=== PATIENT | female | born 1990 | race Caucasian/White ===

== ENCOUNTER 2022-10-14 07:46 | Inpatient (IN) ==
[2022-10-14] MEDS ORDERED: OXYTOCIN 30 UNITS/500 ML BAG IV PRN ×3 (07:59→18:55)
[2022-10-14] MEDS ORDERED: LIDOCAINE 1% LOCAL 20 ML VIAL INFIL PRN (07:59)
--- NOTE | 2022-10-14 08:03 | History & Physical Report ---
Date of Service October 14, 2022 Assessment & Plan (1) Encounter for supervision of normal in multigravida: Plan: Admit for IOL. Plans for epidural. Pitocin. Admission and Anticipated Discharge Date Admission Date: October 14, 2022 History of Present Illness Chief Complaint: IOL Primary Care Provider: Yumiko Marte DO 31yo @ 40 11/19, here for IOL. Covid+ beginning of May-currently taking Baby ASA daily Transfer into care @ 29+ weeks Low Lying placenta * plan 32wk placenta recheck Conceived on Clomid IOL Post-Dates 10/14 Allergies Allergy/AdvReac Type Severity Reaction Status Date / Time Penicillins Allergy Mild rash Verified 10/11/22 16:28 Home Medications Medication Instructions Recorded Confirmed Type lubiprostone 24 mcg capsule 24 mcg PO BID #60 caps 01/18/22 10/11/22 Rx (Amitiza) aspirin [Aspirin Childrens] PO 07/26/22 10/11/22 History sertraline [Zoloft] PO 07/26/22 10/11/22 History prenat.vits,yojana,wju-scml-kagdj 1 tab PO DAILY #90 tabs 08/14/22 10/11/22 Rx Patient History Medical History (Updated 07/30/22 @ 15:36 by Jelly Silva MD, FACOG) Abdominal cramping Constipation COVID Diarrhea History of anesthesia reaction cholecystectomy [facility] 07/22/19 - "they had to give me extra medicine to reverse the muscle relaxant." Miscarriage Surgical History (Updated 07/26/22 @ 10:24 by Nishi Barrera) History of foot surgery LEFT FOOT CYST REMOVED Hx laparoscopic cholecystectomy (07/22/19) Laparoscopic Cholecystectomy Dr. Peña 07/22/19 Hx of wisdom tooth extraction S/P colonoscopy Family History (Updated 07/26/22 @ 09:59 by Nishi Barrera) Father Diabetes Heart disease Other No family history of adverse response to anesthesia Denies family history of Ovarian cancer Breast cancer Colorectal cancer Social History (Updated 07/26/22 @ 10:00 by Nishi Barrera) Smoking Status: Never smoker Second Hand Exposure: No; Hx Alcohol Use: No Hx Substance Use: No Preferred Language: Namibian Communication Ability: Effective Visual Impairment: No Limitations Medical Collections Specialist Required: No Beliefs That Will Affect Care: None marital status: marital status details: Bora Ceballos (31) [phone] Current Living Situation: Spouse and Family Current Living Situation Comment: lives with spouse, daughter, pt's brother, no pets 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 occupational status: 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 No s/s chorio or abruption. Skin: no rashes, warm and dry Psychiatric: A+Ox3, euthymic affect Results & Data ([facility]) Vital Signs (Past 12 Hours) Vital Signs Pulse BP 10/14/22 07:59 125 H 90/67 L Coding Level of Care Code None Diagnoses Encounter for supervision of normal in multigravida Z34.80
[2022-10-14 08:16] LABS: Hematocrit (blood only) 36.4 % (37.0-47.0); Hemoglobin 12.2 g/dl (12.0-16.0); Mean Corpuscular Hemoglobin 28.4 pg (25.0-34.0); Mean Corpuscular Hgb Conc 33.5 g/dL (32.0-36.0); Mean Corpuscular Volume 84.7 fL (80.0-100.0); Mean Platelet Volume 9.7 fL (9.4-12.4); Platelet Count 256 K/uL (130-400); RDW Coefficient of Variation 14.9 % (11.5-14.5); RDW Standard Deviation 45.9 fL (36.4-46.3); White Blood Count 11.67 K/ul (4.8-10.8)
[2022-10-14] MEDS ORDERED: ONDANSETRON INJ 2 MG/ML 2 ML VIAL IV STA (08:47)
[2022-10-14] MEDS: LACTATED RINGER'S 1,000 ML IV PRN ×2 (09:13→13:37)
[2022-10-14] MEDS ORDERED: ACETAMINOPHEN 325 MG TAB PO ONE (14:54)
--- NOTE | 2022-10-14 15:06 | Labor Progress Brief Note ---
Date of Service October 14, 2022 Subjective pt feeling mild ctx, ready for arom Assessment & Plan (1) Encounter for supervision of normal in multigravida: (2) Encounter for induction of labor: Plan will see how arom helps labor pattern. she does plan eventual epidural. will restart pit if fhts categ 1 by 30min at half. pt and partner aware, deny ?s. Admission and Anticipated Discharge Date Admission Date: October 14, 2022 Physical Exam Constitutional: WD/WN, vitals as above Genitourinary: Manual OB Exam: + cervical dilation 5 cm, + cervical effacement 90%, + station -2 and + amniotic fluid (arom--min fluid??) clear OB Exam Monitor Tracing: + external FHT monitor used, + external uterine monitor used, + category I (+scalp stim with arom, then decel noted, pit was at 21, turned off) and + normal FHT variability during decel pt rolled to lateral sides, o2 appiled and bolus given, fhts recovered to 125, mod variability Results & Data ([facility]) Vital Signs (Past 12 Hours) Vital Signs Temp Pulse Resp BP 10/14/22 08:28 98.2 F 125 H 18 90/67 L 10/14/22 14:13 85 10/14/22 14:13 105/57 L 10/14/22 08:00 18 10/14/22 08:00 98.4 F 18 10/14/22 13:15 72 10/14/22 13:15 125/73 10/14/22 12:03 81 10/14/22 12:03 122/81 10/14/22 11:01 92 H 10/14/22 11:01 107/73 10/14/22 10:04 73 10/14/22 10:04 110/71 10/14/22 09:19 80 10/14/22 09:19 106/66 10/14/22 07:59 125 H 90/67 L Coding Level of Care Code None Diagnoses Encounter for supervision of normal in multigravida Z34.80 Encounter for induction of labor Z34.90
[2022-10-14] MEDS ORDERED: ePHEDrine sulfate 50 MG/ML AMP ONE (15:23)
[2022-10-14] MEDS ORDERED: fentaNYL 2MCG/ML ROPIVACAINE 1.25MG/ML 100 ML BAG EPI ONE (15:24)
[2022-10-14] MEDS ORDERED: BUPIVACAINE 0.25% 30 ML VIAL ONE (15:24)
[2022-10-14] MEDS ORDERED: LIDOCAINE 2%/EPINEPHRINE 1:200,000 20 ML SDV ONE (15:24)
[2022-10-14] MEDS ORDERED: fentaNYL citrate 100 MCG/2 ML VIAL ONE (15:24)
[2022-10-14] MEDS ORDERED: SODIUM CHLORIDE 0.9% INJ 10 ML VIAL ONE (15:24)
[2022-10-14] MEDS ORDERED: NALOXONE HCL 0.4 MG/1 ML VIAL/CARP IV PRN (15:25)
[2022-10-14] MEDS ORDERED: NALOXONE HCL 1 MG in SODIUM CHLORIDE 0.9% 1000ML 1,000 ML IV PRN (15:25)
[2022-10-14] MEDS ORDERED: diphenhydrAMINE 50 MG/ML VIAL IV PRN (15:25)
[2022-10-14] MEDS ORDERED: ONDANSETRON INJ 2 MG/ML 2 ML VIAL IV PRN (15:25)
[2022-10-14] MEDS ORDERED: NALBUPHINE HCL INJ 10 MG/ML AMP IV PRN (15:25)
[2022-10-14] MEDS ORDERED: ePHEDrine sulfate 50 MG/ML AMP IV PRN (15:25)
[2022-10-14] MEDS ORDERED: fentaNYL 2MCG/ML ROPIVACAINE 1.25MG/ML 100 ML BAG EPI PRN (15:25)
--- NOTE | 2022-10-14 15:25 | Anesthesiology Consultation ---
Date of Service October 14, 2022 Assessment & Plan ASA ASA2 Proposed Anesthesia Anesthesia Type: Labor Epidural Risk / Benefits Reviewed With: PT / POA / Parent / Guardian, Accepts Plan and Informed Consent Obtained History Height/Weight Height: 5 ft 4 in Weight: 76.204 kg Allergies Allergy/AdvReac Type Severity Reaction Status Date / Time Penicillins Allergy Mild rash Verified 10/14/22 08:16 Medications Home Medications Medication Instructions Recorded Confirmed Last Taken lubiprostone 24 mcg capsule 24 mcg PO BID #60 caps 01/18/22 10/14/22 10/13/22 20:00 (Amitiza) aspirin [Aspirin Childrens] 1 tab PO DAILY 07/26/22 10/14/22 10/11/22 sertraline [Zoloft] 1 tab PO DAILY 07/26/22 10/14/22 10/13/22 20:00 prenat.vits,yojana,wqh-nsdi-bxelk 1 tab PO DAILY #90 tabs 08/14/22 10/14/22 10/13/22 20:00 Pepcid 1 tab PO Q6H PRN Heartburn 10/14/22 10/14/22 10/13/22 20:00 Active Medications Generic Name Dose Route Start Last Admin Trade Name Freq PRN Reason Stop Dose Admin Oxytocin 30 units in 500 mls @ 12 mls/hr 10/14/22 08:00 10/14/22 16:00 Pitocin IV 10/16/22 07:59 0.72 units/hr .Q24H PRN 12 mls/hr Labor Induction/Augmentation Titration Protocol 0.72 UNITS/HR Lactated Ringer's 1,000 mls @ 125 mls/hr 10/14/22 07:59 10/14/22 13:37 Lr IV 10/16/22 07:58 125 mls/hr .Q8H PRN Administration L&D Protocol Protocol Past Medical History Medical History Abdominal cramping Constipation COVID Diarrhea History of anesthesia reaction cholecystectomy [facility] 07/22/19 - "they had to give me extra medicine to reverse the muscle relaxant." Miscarriage Exercise / Class Metabolic Activity II 4-5 Yardwork/Stairs/Walk up hill Past Family History Family History Father Diabetes Heart disease Other No family history of adverse response to anesthesia Denies family history of Ovarian cancer Breast cancer Colorectal cancer Past Surgical History Surgical History History of foot surgery LEFT FOOT CYST REMOVED Hx laparoscopic cholecystectomy (07/22/19) Laparoscopic Cholecystectomy Dr. Peña 07/22/19 Hx of wisdom tooth extraction S/P colonoscopy Past Anesthesia History No Hx of Anesthesia Complications and No Family Hx of Anesthesia Complications History of PONV No Hx of PONV and No Hx of Motion Sickness Social History Smoking Status: Never smoker Hx Alcohol Use: No Hx Substance Use: No substance use type: does not use Review of Systems denies fever/cough/ colds/ chest pain/ SOB/ NAA denies NAA Physical Exam Vital Signs Last Vital Signs Temp 36.7 C 10/14/22 15:05 Pulse 75 10/14/22 16:30 Resp 18 10/14/22 15:05 BP 112/61 10/14/22 16:29 Pulse Ox 98 10/14/22 16:30 ENMT Mouth: no TMJ abnormality and no dentition abnormality Thyromental Distance: > or= 3.5 Finger Breadths Mallampati Class: II Neck neck extension not limited Respiratory normal respiratory effort; no respiratory distress Auscultation: lungs clear to auscultation bilaterally Cardiovascular Rate/Rhythm: regular rate and regular rhythm Neurologic moves all extremities Psychiatric Orientation: alert and oriented x 3 Testing Laboratory Results 10/14/22 08:03
[2022-10-14] MEDS ORDERED: miSOPROStoL 200 MCG TAB ONE (17:54)
[2022-10-14] MEDS ORDERED: METHYLERGONOVINE MALEATE 0.2 MG/ML AMP ONE (18:01)
--- NOTE | 2022-10-14 18:40 | Delivery Summary ---
Vaginal Delivery Summary Date of Service October 14, 2022 Vaginal Delivery Summary and 2nd Degree LAC The patient dilated to complete and pushed to deliver a viable male infant Apgars 8 and 9 via over 2nd degree perineal laceration. Mouth and nose bulb suctioned at perineum. Loose nuchal x 4 reduced with ease. Shoulders and body delivered with ease. was vigorous and crying at . Cord clamped at 30 seconds of life and to maternal abdomen where the cord was then doubly clamped and cut. Placenta delivered spontaneously and intact, three-vessel cord. Hemostasis not achieved with dilute pitocin and uterine massage and drainage of the bladder for approximately 300 cc under sterile conditions. Bimanual massage initiated and uterus swept x 2, ? tissue on anterior BRIGETTE and so bedside curette used with minimal result. Uterus boggy and clots swept from BRIGETTE multiple times. Rectal cytotec and IM methergine given after checking bp due to continued trickle of blood. Bakri balloon prepared to being able to place hand in BRIGETTE but once tried to inflate, was pushed out by uterus. Uterus then observed and notably minimal continued bleeding with well contracted uterus on abdominal exam. Laceration repaired in routine fashion with 3-0 vicryl. Cervix and sulci intact. EBL 600 cc. Mother and baby stable in recovery. [facility] Vaginal Delivery Charge Delivery Type Details: and 2nd Degree LAC
[2022-10-14] MEDS ORDERED: DIPHTHERIA/TETANUS/PERTUSSIS 0.5mL SYR/VIAL (Age 7+yrs) IM ONE (18:55)
[2022-10-14] MEDS ORDERED: miSOPROStoL 200 MCG TAB PR ONE (18:55)
[2022-10-14] MEDS ORDERED: METHYLERGONOVINE MALEATE 0.2 MG/ML AMP IM ONE (18:55)
[2022-10-14] MEDS ORDERED: HYDROCORTISONE ACETATE 25 MG SUPP PR PRN (18:55)
[2022-10-14] MEDS ORDERED: bisacodyL 10 MG SUPP PR PRN (18:55)
[2022-10-14] MEDS ORDERED: BENZOCAINE 20% AER SPR 82.5 GM CAN EXT PRN (18:55)
[2022-10-14] MEDS ORDERED: OXYTOCIN 20 UNITS in LACTATED RINGER'S 1,000 ML IV SCH (19:00)
[2022-10-14] MEDS ORDERED: FAMOTIDINE 10 MG TABLET PO PRN (19:04)
--- NOTE | 2022-10-14 19:27 | Anesthesia Procedure Note ---
Date of Service October 14, 2022 Anesthesia Post Epidural Note Vital Signs Vital Signs: Temp Pulse Resp BP Pulse Ox 37.0 C 60 16 125/58 L 98 10/14/22 17:00 10/14/22 19:25 10/14/22 17:00 10/14/22 19:14 10/14/22 19:25 Notes Mental Status: alert / awake / arousable and participated in evaluation Nausea / Vomiting: adequately controlled Pain: adequately controlled Airway Patency, RR, SpO2: stable & adequate BP & HR: stable & adequate Hydration State: stable & adequate Anesthetic Complications: no major complications apparent and Pt Satisfied with anesthetic care Epidural: Removed without complications and With tip intact
[2022-10-14] MEDS: ceFAZolin 2000MG 2,000 MG/15 ML SYR IV SCH (19:51)
[2022-10-14] MEDS: DOCUSATE SODIUM 100 MG CAP PO SCH ×2 (21:08→21:18)
[2022-10-14] MEDS: LUBIPROSTONE 8 MCG CAP PO SCH (21:09)
[2022-10-14] MEDS: SERTRALINE HCL 50 MG TABLET PO SCH (21:09)
[2022-10-14] MEDS: IBUPROFEN 600 MG TAB PO PRN (23:17)
[2022-10-15] MEDS: ACETAMINOPHEN 325 MG TAB PO PRN ×2 (01:22→11:17)
[2022-10-15] MEDS: IBUPROFEN 600 MG TAB PO PRN ×3 (03:08→18:43)
[2022-10-15] MEDS: ceFAZolin 2000MG 2,000 MG/15 ML SYR IV SCH ×2 (03:11→10:41)
[2022-10-15] MEDS ORDERED: oxyCODONE/ACETAMINOPHEN 5mg/325mg TAB PO PRN (04:00)
--- NOTE | 2022-10-15 06:52 | Obstetrical Progress Note ---
Date of Service <Bridget SGypsy Kellogg DO - Last Filed: 10/15/22 07:30> October 15, 2022 Assessment & Plan <Bridget SGypsy Kellogg DO - Last Filed: 10/15/22 07:30> (1) Status post vaginal delivery: continue OOB, ambulation, diet as tolerated <Jelly Silva MD, FACOG - Last Filed: 10/15/22 07:37> (1) Status post vaginal delivery: Day #:: 1 Subjective <Bridget S. DO Valdez - Last Filed: 10/15/22 07:30> Anna is a 31 y/o female who is now PPD # 1 following vaginal delivery at 40 3/7 weeks. Reports feeling well overall this morning. Moderate abdominal cramping, pain well managed on analgesics. Voiding. Able to ambulate some. Some persistent lochia with some improvement this morning. Breast feeding. Review of Systems As per above Physical Exam <Bridget Kellogg DO - Last Filed: 10/15/22 07:30> General: Alert, oriented. No acute distress. Cardiac: Regular rate and rhythm, no murmurs/rubs/gallops. Respiratory: Clear to auscultation bilaterally a/p, no wheezes/rales/rhonchi. No increased work of breathing. Symmetrical chest rise. No respiratory distress. Uterus: Uterine fundus firm, palpable 2 cm below umbilicus. Lower Extremities: No lower extremity edema or swelling. No deep calf pain. Results & Data ([facility]) <Bridget SGypsy Kellogg DO - Last Filed: 10/15/22 07:30> Vital Signs (Past 12 Hours) Vital Signs Temp Pulse Pulse Resp BP BP Pulse Ox 10/15/22 03:50 36.6 C 74 16 127/83 97 10/14/22 23:05 36.6 C 70 16 103/85 96 10/14/22 20:32 36.8 C 69 16 111/73 96 10/14/22 19:45 36.8 C 18 10/14/22 20:13 62 10/14/22 20:13 123/67 10/14/22 19:58 68 10/14/22 19:58 121/72 10/14/22 19:50 99 10/14/22 19:50 63 10/14/22 19:45 96 10/14/22 19:45 61 10/14/22 19:44 60 10/14/22 19:44 120/62 10/14/22 19:40 98 10/14/22 19:40 63 10/14/22 19:35 99 10/14/22 19:35 62 10/14/22 19:30 99 10/14/22 19:30 73 10/14/22 19:29 65 10/14/22 19:29 119/63 10/14/22 19:25 98 10/14/22 19:25 60 10/14/22 19:20 97 10/14/22 19:20 58 L 10/14/22 19:15 98 10/14/22 19:15 60 10/14/22 19:14 61 10/14/22 19:14 125/58 L 10/14/22 19:10 91 10/14/22 19:10 62 10/14/22 19:05 98 10/14/22 19:05 68 10/14/22 19:00 96 10/14/22 19:00 67 10/14/22 18:59 90 10/14/22 18:59 64 10/14/22 18:55 98 10/14/22 18:55 71 10/14/22 18:50 100 10/14/22 18:50 73 O2 Del Method 10/15/22 03:50 Room Air 10/14/22 23:05 Room Air 10/14/22 20:32 Room Air 10/14/22 19:45 10/14/22 20:13 10/14/22 20:13 10/14/22 19:58 10/14/22 19:58 10/14/22 19:50 10/14/22 19:50 10/14/22 19:45 10/14/22 19:45 10/14/22 19:44 10/14/22 19:44 10/14/22 19:40 10/14/22 19:40 10/14/22 19:35 10/14/22 19:35 10/14/22 19:30 10/14/22 19:30 10/14/22 19:29 10/14/22 19:29 10/14/22 19:25 10/14/22 19:25 10/14/22 19:20 10/14/22 19:20 10/14/22 19:15 10/14/22 19:15 10/14/22 19:14 10/14/22 19:14 10/14/22 19:10 10/14/22 19:10 10/14/22 19:05 10/14/22 19:05 10/14/22 19:00 10/14/22 19:00 10/14/22 18:59 10/14/22 18:59 10/14/22 18:55 10/14/22 18:55 10/14/22 18:50 10/14/22 18:50 <Jelly Silva MD, FACOG - Last Filed: 10/15/22 07:37> Co-Signing Physician Notes Resident Physician Supervision Note: I was present with Dr. Kellogg during the history and exam. I discussed the case with the resident and agree with the findings and plan as documented in the note. Any exceptions or clarifications are listed here: pt doing better overnight, had some significant cramps but improved after percocet. eating, voiding, ambulating without problem. no bleeding issues. abd soft nt ff 2 down, ext nt calves. had pph and hgb noted. cont current care. rh pos, ri, breast. Documented By: Jelly Silva MD, FACOG Resident Activity Tracking <Bridget Kellogg, DO - Last Filed: 10/15/22 07:30> Resident Involvement: Resident Care Provided Care Provided: OB Delivery (Post )
[2022-10-15 07:59] LABS: Hematocrit (blood only) 33.6 % (37.0-47.0); Hemoglobin 11.2 g/dl (12.0-16.0)
[2022-10-15] MEDS: PRENATAL VITAMIN 1 TAB PO SCH (08:18)
[2022-10-15] MEDS: DOCUSATE SODIUM 100 MG CAP PO SCH ×2 (08:19→21:09)
[2022-10-15] MEDS: LUBIPROSTONE 8 MCG CAP PO SCH ×3 (08:20→21:09)
[2022-10-15] MEDS ORDERED: FLUARIX QUADRIVALENT 0.5 ML SYR IM ONE (09:04)
[2022-10-15] MEDS ORDERED: bisacodyL 5 MG TABEC PO SCH (20:00)
[2022-10-16] MEDS: IBUPROFEN 600 MG TAB PO PRN ×2 (02:55→08:27)
--- NOTE | 2022-10-16 06:12 | Obstetrical Progress Note ---
Date of Service <Bridget Kellogg - Last Filed: 10/16/22 07:13> October 16, 2022 Assessment & Plan <Bridget Kellogg DO - Last Filed: 10/16/22 07:13> (1) Status post vaginal delivery: continue OOB, ambulation, diet as tolerated Post f/u in 6 weeks Discharge instructions reviewed <Tavia Robledo MD, FACOG - Last Filed: 10/16/22 07:16> (1) Status post vaginal delivery: Subjective <Bridget Kellogg - Last Filed: 10/16/22 07:13> Anna is a 31 y/o female who is now PPD #2 following vaginal delivery at 40 3/7 weeks. Reports feeling well overall this morning. Moderate abdominal cramping, pain well managed on analgesics. Voiding. Able to ambulate some. Some persistent lochia with some improvement this morning. Breast fe eding. Review of Systems Denies fever, chills, sweats Denies shortness of breath, difficulty breathing, chest pain, palpitations, chest pressure. Denies breast pain. Denies dysuria. Denies headache or changes in vision. Physical Exam <Bridget Kellogg - Last Filed: 10/16/22 07:13> General: Alert, oriented. No acute distress. Cardiac: Regular rate and rhythm, no murmurs/rubs/gallops. Respiratory: Clear to auscultation bilaterally a/p, no wheezes/rales/rhonchi. No increased work of breathing. Symmetrical chest rise. No respiratory distress. Uterus: Uterine fundus firm, palpable 2 cm below umbilicus. Lower Extremities: No lower extremity edema or swelling. No deep calf pain. Results & Data ([facility]) <Bridget Kellogg - Last Filed: 10/16/22 07:13> Vital Signs (Past 12 Hours) Vital Signs Temp Pulse Resp BP O2 Del Method 10/15/22 23:10 36.6 C 76 18 107/72 Room Air 10/15/22 19:50 36.5 C 63 18 103/70 Room Air <Tavia Robledo MD, FACOG - Last Filed: 10/16/22 07:16> Co-Signing Physician Notes Resident Physician Supervision Note: I was present with Dr. Kellogg during the history and exam. I discussed the case with the resident and agree with the findings and plan as documented in the note. Any exceptions or clarifications are listed here: [None] Documented By: Tavia Robledo MD, FACOG Resident Activity Tracking <Bridget Kellogg, DO - Last Filed: 10/16/22 07:13> Resident Involvement: Resident Care Provided Care Provided: OB Delivery (Post )
[2022-10-16] MEDS: PRENATAL VITAMIN 1 TAB PO SCH (08:28)
[2022-10-16] MEDS: DOCUSATE SODIUM 100 MG CAP PO SCH (08:28)
[2022-10-16] MEDS: SERTRALINE HCL 50 MG TABLET PO SCH (08:32)
[2022-10-16] MEDS: LUBIPROSTONE 8 MCG CAP PO SCH (08:33)
== END 2022-10-16 12:00 | disposition home or self-care (01) | DRG 806 ==
LOC: 4S1 07:46 → 4E2 21:08

== ENCOUNTER 2024-06-14 09:06 | Inpatient (IN) ==
[2024-06-14] MEDS ORDERED: OXYTOCIN 30 UNITS/NSS 30 UNITS/500 ML BAG IV PRN ×2 (09:15→15:57)
[2024-06-14] MEDS ORDERED: LIDOCAINE 1% LOCAL 20 ML VIAL INFIL PRN (09:15)
[2024-06-14 09:58] LABS: Hematocrit (blood only) 36.1 % (37.0-47.0); Hemoglobin 11.7 g/dl (12.0-16.0); Mean Corpuscular Hemoglobin 27.4 pg (25.0-34.0); Mean Corpuscular Hgb Conc 32.4 g/dL (32.0-36.0); Mean Corpuscular Volume 84.5 fL (80.0-100.0); Mean Platelet Volume 9.4 fL (9.4-12.4); Platelet Count 251 K/uL (130-400); RDW Coefficient of Variation 16.3 % (11.5-14.5); Red Blood Count 4.27 M/uL (4.20-5.40); White Blood Count 10.55 K/ul (4.8-10.8)
[2024-06-14] MEDS: LACTATED RINGER'S 1,000 ML IV PRN (10:07)
[2024-06-14] MEDS: OXYTOCIN 30 UNITS/NSS 30 UNITS/500 ML BAG IV PRN (10:07)
[2024-06-14] MEDS ORDERED: BUPIVACAINE 0.25% PF 30 ML VIAL EPI PRN (11:41)
[2024-06-14] MEDS ORDERED: ONDANSETRON INJ 2 MG/ML 2 ML VIAL IV PRN ×2 (11:41→18:26)
[2024-06-14] MEDS ORDERED: NALOXONE HCL 1 MG in SODIUM CHLORIDE 0.9% 1,000 ML IV PRN ×2 (11:41→18:26)
[2024-06-14] MEDS ORDERED: fentaNYL citrate PF 100 MCG/2 ML VIAL EPI PRN (11:41)
[2024-06-14] MEDS ORDERED: NALBUPHINE HCL INJ 10 MG/ML AMP IV PRN ×2 (11:41→18:26)
[2024-06-14] MEDS ORDERED: ePHEDrine sulfate 50 MG/ML AMP IV PRN ×2 (11:41→18:26)
[2024-06-14] MEDS ORDERED: LIDOCAINE 2% MPF LOCAL 5 ML VIAL EPI PRN (11:41)
[2024-06-14] MEDS ORDERED: diphenhydrAMINE 50 MG/ML VIAL IV PRN ×2 (11:41→18:26)
[2024-06-14] MEDS ORDERED: NALOXONE HCL 0.4 MG/1 ML VIAL/CARP IV PRN ×2 (11:41→18:26)
[2024-06-14] MEDS ORDERED: SODIUM CHLORIDE 0.9% PF INJ 10 ML VIAL EPI PRN (11:41)
[2024-06-14] MEDS ORDERED: ROPIVACAINE 0.5% PF 5 MG/ML 20 ML VIAL EPI PRN (11:41)
--- NOTE | 2024-06-14 11:43 | Anesthesiology Consultation ---
Date of Service June 14, 2024 Assessment & Plan (1) Encounter for pre-operative examination: Chart Review Chart Review: Patient NOT seen in Pre Admission Testing and Acceptable Risk for Labor Epidural Consults Requested none History Height/Weight Height: 5 ft 4 in Weight: 78.018 kg Allergies Allergy/AdvReac Type Severity Reaction Status Date / Time Penicillins Allergy Mild rash Verified 06/08/24 16:17 Medications Home Medications Medication Instructions Recorded Confirmed Last Taken lubiprostone 24 mcg capsule 24 mcg PO HS 10/26/23 06/14/24 06/13/24 22:30 (Amitiza) sertraline 25 mg tablet 25 mg PO HS 10/26/23 06/14/24 06/13/24 22:30 vitamin with calcium 1 tab PO DAILY #90 tabs 04/20/24 06/14/24 06/13/24 22:30 no.72-iron 27 mg-folic acid 1 mg tablet (WesTab Plus) Active Medications Generic Name Dose Route Start Last Admin Trade Name Freq PRN Reason Stop Dose Admin Oxytocin 30 units in 500 mls @ 5 mls/hr 06/14/24 09:15 06/14/24 11:15 Pitocin 30 Units/Nss IV 06/16/24 09:14 0.3 units/hr .Q24H PRN 5 mls/hr Labor Induction/Augmentation Titration Protocol 0.3 UNITS/HR Lactated Ringer's 1,000 mls @ 125 mls/hr 06/14/24 09:15 06/14/24 11:25 Lr IV 06/16/24 09:14 999 mls/hr .Q8H PRN Titration L&D Protocol Protocol Past Medical History Medical History Encounter for induction of labor Miscarriage COVID History of anesthesia reaction cholecystectomy [facility] 07/22/19 - "they had to give me extra medicine to reverse the muscle relaxant." Abdominal cramping Diarrhea Constipation Exercise / Class Metabolic Activity II 4-5 Yardwork/Stairs/Walk up hill Past Family History Family History Father Diabetes Heart disease Myocardial infarction Sister No problems noted. Mother Hypertension Hypothyroidism Other No family history of adverse response to anesthesia Denies family history of Ovarian cancer Prostate cancer Breast cancer Colorectal cancer Past Surgical History Surgical History Status post vaginal delivery S/P colonoscopy Hx laparoscopic cholecystectomy (07/22/19) Laparoscopic Cholecystectomy Dr. Peña 07/22/19 History of foot surgery LEFT FOOT CYST REMOVED Hx of wisdom tooth extraction Social History Smoking Status: Never smoker Do You Dip or Chew Tobacco: No Hx Alcohol Use: No Hx Substance Use: No substance use type: does not use Physical Exam Vital Signs Last Vital Signs Temp 36.7 C 06/14/24 09:14 Pulse 72 06/14/24 11:14 Resp 18 06/14/24 09:14 BP 106/67 06/14/24 11:14 Testing Laboratory Results 06/14/24 09:33 Blood Type O Positive 06/14/24 09:33 Antibody Screen NEGATIVE 06/14/24 09:33
[2024-06-14] MEDS: LIDOCAINE 2%/EPINEPHRINE 1:200,000 20 ML PF EPI STA (12:13)
[2024-06-14] MEDS: fentANYL 2 MCG/ML BUPIVacaine 0.125%-NSS 100ML BAG EPI PRN (12:13)
[2024-06-14] MEDS: fentaNYL citrate PF 100 MCG/2 ML VIAL EPI STA (12:13)
[2024-06-14] MEDS: BUPIVACAINE 0.25% PF 30 ML VIAL EPI STA (12:13)
--- NOTE | 2024-06-14 13:04 | History & Physical Report ---
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: G1 2017 SAB G2 2019 at 40 wks G3 2022 at 40 wks G4 current denies hx stis Allergies Allergy/AdvReac Type Severity Reaction Status Date / Time Penicillins Allergy Mild rash Verified 06/08/24 16:17 Home Medications Medication Instructions Recorded Confirmed Type lubiprostone 24 mcg capsule 24 mcg PO HS 10/26/23 06/14/24 History (Amitiza) sertraline 25 mg tablet 25 mg PO HS 10/26/23 06/14/24 History vitamin with calcium 1 tab PO DAILY #90 tabs 04/20/24 06/14/24 Rx no.72-iron 27 mg-folic acid 1 mg tablet (WesTab Plus) Patient History Medical History Encounter for induction of labor Miscarriage COVID History of anesthesia reaction cholecystectomy [facility] 07/22/19 - "they had to give me extra medicine to reverse the muscle relaxant." Abdominal cramping Diarrhea Constipation Surgical History Status post vaginal delivery S/P colonoscopy Hx laparoscopic cholecystectomy (07/22/19) Laparoscopic Cholecystectomy Dr. Peña 07/22/19 History of foot surgery LEFT FOOT CYST REMOVED Hx of wisdom tooth extraction Family History Father Diabetes Heart disease Myocardial infarction Sister No problems noted. Mother Hypertension Hypothyroidism Other No family history of adverse response to anesthesia Denies family history of Ovarian cancer Prostate cancer Breast cancer Colorectal cancer Social History Smoking Status: Never smoker Second Hand Exposure: No; Do You Dip or Chew Tobacco: No; Hx Alcohol Use: No Hx Substance Use: No Preferred Language: Khmer Communication Ability: Effective Visual Impairment: No Limitations Shared Services Manager Required: No Beliefs That Will Affect Care: None marital status: marital status details: Bora Ceballos (32) [phone] Current Living Situation: Spouse and Family Current Living Situation Comment: lives with spouse, 2 kids, no pets 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 That Helps Us Care for You: No Feels Safe at Home: Yes Safety Concerns: Feels Safe At This Time Assistive Devices: Contacts and Glasses Physical Exam Genitourinary: Manual OB Exam: + cervical dilation 4 cm, + cervical effacement 70%, + station -2 and + amniotic fluid (arom clear) OB Exam Monitor Tracing: + external FHT monitor used, + external uterine monitor used (q4) and + category I (145-150/mod/+accel/-decel) Results & Data Vital Signs (Past 12 Hours) Vital Signs Temp Pulse Resp BP Pulse Ox 06/14/24 12:57 65 112/58 L 06/14/24 12:54 69 99 06/14/24 12:50 85 103/65 06/14/24 12:49 68 86 L 06/14/24 12:44 61 104/59 L 100 06/14/24 12:39 100 06/14/24 12:39 68 06/14/24 12:39 68 108/64 06/14/24 12:37 59 L 100/60 06/14/24 12:35 66 105/69 06/14/24 12:34 71 100 06/14/24 12:33 64 104/66 06/14/24 12:31 63 106/67 06/14/24 12:29 97 06/14/24 12:29 67 06/14/24 12:29 64 107/68 06/14/24 12:28 98.4 F 06/14/24 12:27 70 107/65 06/14/24 12:25 67 104/64 06/14/24 12:24 68 99 06/14/24 12:23 65 103/63 06/14/24 12:21 81 101/63 06/14/24 12:20 20 06/14/24 12:20 20 06/14/24 12:19 68 98/61 L 99 06/14/24 12:17 75 101/60 06/14/24 12:15 69 20 97/64 L 06/14/24 12:14 72 99 06/14/24 12:13 71 100/61 06/14/24 12:11 71 91/54 L 06/14/24 12:10 20 06/14/24 12:10 20 06/14/24 12:09 100 06/14/24 12:09 65 06/14/24 12:09 64 100/59 L 06/14/24 12:06 66 102/60 92 06/14/24 12:04 66 97 06/14/24 11:59 58 L 98 06/14/24 11:54 94 H 100 06/14/24 11:50 77 117/75 06/14/24 11:49 80 100 06/14/24 11:14 72 106/67 06/14/24 10:10 78 107/71 06/14/24 09:23 85 107/60 06/14/24 09:14 98.1 F 18 Laboratory Results OB Labs: Blood Type O Positive 11/10/23 Antibody Screen NEGATIVE 11/10/23 Hgb 11.0 g/dl (12.0-16.0) L 03/25/24 Hct 34.6 % (37.0-47.0) L 03/25/24 MCV 80.6 fL (80.0-100.0) 12/14/23 Plt Count 364 K/uL (130-400) 12/14/23 Rubella IgG Antibody Immune (Immune) 11/10/23 RPR Nonreactive (Nonreactive) 11/10/23 Hep Bs Antigen NON-REACTIVE (NON-REACTIVE) 11/10/23 Hepatitis C Ab (EIA) NON-REACTIVE (NON-REACTIVE) 11/10/23 HIV (1&2) Ag & Ab Conf NON-REACTIVE (NON-REACTIVE) 11/10/23 Glucose 1 Hr 50 gm 76 mg/dl (70-130) 03/25/24 OB Optional Labs: Chlamydia trachomatis RNA Not Detected (NotDetected) 11/10/23 Neisseria gonorrhoeae RNA Not Detected (NotDetected) 11/10/23 Labs Reviewed: Declines genetics--mln gbs neg--akh Diagnostic Findings ant plac Coding Level of Care Code None Diagnoses Encounter for supervision of normal in multigravida Z34.80
[2024-06-14] MEDS ORDERED: NURSING L&D Epidural Breakthrough Pain Update ONE (14:35)
--- NOTE | 2024-06-14 15:52 | Delivery Summary ---
Vaginal Delivery Summary Date of Service June 14, 2024 Vaginal Delivery Summary [facility] PREOPERATIVE DIAGNOSIS: 1. Single intrauterine at 40 1/7 wga 2. Induction of labor POSTOPERATIVE DIAGNOSIS: 1. Single intrauterine at 40 1/7 wga 2. Induction of labor 3. Delivered PROCEDURE: 1. Normal spontaneous vaginal delivery. SURGEON: Anna Park MD ANESTHESIA: Epidural. QUANTITATIVE BLOOD LOSS: 134 mL FLUIDS: Continuous LR. URINE OUTPUT: 400cc by straight cath after delivery COMPLICATIONS: None. CONDITION: Stable. INDICATIONS: 33 yo at 40 1/7 wga presented for induction of labor. She was 4cm on arrival and started on pitocin. She received an epidural for pain control and underwent arom. She quickly progressed to complete and desired to push FINDINGS: A viable female infant, weight pending with Apgars of 7 and 9 at 1 and 5 minutes respectively. SPECIMEN: Cord blood OPERATIVE REPORT: The patient progressed to 10 cm, 100% effaced and +2 station, pushed over intact perineum with anesthesia to deliver a viable female , weight and Apgars as above. Head of delivered in GRACE position. No nuchal cord was present. Body and shoulders were delivered without difficulty. was delivered to maternal abdomen and nursing staff. Cord was clamped and cut. Cord blood was obtained. Placenta delivered spontaneously intact with 3-vessel cord. IV oxytocin and fundal massage were given for excellent hemostasis. Vagina, cervix, perineum, and placenta were inspected. No lacerations were noted. Sponge and needle counts correct x2. No sponges were left behind. Mother and stable in immediate period. [facility] Vaginal Delivery Charge Vaginal Delivery Codes: 77587 global code for the antepartum, delivery, and post- Delivery Type Details: [facility]
[2024-06-14] MEDS ORDERED: HYDROCORTISONE ACETATE 25 MG SUPP PR PRN (15:57)
[2024-06-14] MEDS ORDERED: bisacodyL 10 MG SUPP PR PRN (15:57)
[2024-06-14] MEDS: SODIUM CHLORIDE 0.9% PF INJ 10 ML VIAL EPI STA (16:56)
[2024-06-14] MEDS ORDERED: MoRPHine SULFATE PF 1 MG/ML 10 ML AMP/VIAL ONE (18:04)
[2024-06-14] MEDS ORDERED: NALOXONE HCL 0.08 MG in SYRINGE 1.8 ML IV PRN (18:26)
[2024-06-14] MEDS ORDERED: LACTATED RINGER'S 500 ML IV PRN (18:26)
[2024-06-14] MEDS ORDERED: PROMETHAZINE 6.25 MG/50.25 ML BAG IV PRN (18:26)
[2024-06-14] MEDS: COSYNTROPIN 1,000 MCG in SODIUM CHLORIDE 0.9% 50 ML IV ONE (18:30)
[2024-06-14] MEDS ORDERED: DC INTRASPINAL MORPHINE SCH (18:30)
[2024-06-14] MEDS ORDERED: NO NARCOTICS OR SEDATIVES SCH (18:30)
--- NOTE | 2024-06-14 18:32 | Anesthesia Procedure Note ---
Date of Service June 14, 2024 Anesthesia Post Epidural Note Vital Signs Vital Signs: Temp Pulse Resp BP Pulse Ox 36.9 C 83 18 111/57 L 97 06/14/24 15:05 06/14/24 18:03 06/14/24 15:05 06/14/24 18:03 06/14/24 15:44 Pain Intensity Bilateral Abdomen: Pain Intensity: 1 Notes Mental Status: alert / awake / arousable and participated in evaluation Nausea / Vomiting: adequately controlled Pain: adequately controlled Airway Patency, RR, SpO2: stable & adequate BP & HR: stable & adequate Hydration State: stable & adequate Neuraxial Anesthesia: was administered and sensory block is resolving Anesthetic Complications: no major complications apparent and Pt Satisfied with anesthetic care Epidural: Removed without complications and With tip intact Notes: There was concern during epidural placement for possible dural puncture. Patient currently does not endorse any headache but we discussed in detail things to watch out for pertaining to a PDPH. I stressed that she should orally hydrate and have an occasional caffeinated beverage. We talked about not doing a significant amount of strenuous activity in the next few days other than caring for her children at home. I did write for 1mg IV cosyntropin per protocol and did 3mg epidural morphine in order to possibly prevent a PDPH. Epidural morphine orders were placed and nurses made aware. All questions were answered and tomorrow's on-call anesthesia provider made aware of her situation in case she would develop a headache moving forward.
[2024-06-14] MEDS: SERTRALINE HCL 50 MG TABLET PO SCH (20:33)
[2024-06-14] MEDS: DOCUSATE SODIUM 100 MG CAP PO SCH (20:33)
[2024-06-14] MEDS: LUBIPROSTONE 8 MCG CAP PO SCH (20:34)
[2024-06-15] MEDS: ACETAMINOPHEN 325 MG TAB PO PRN (00:14)
[2024-06-15 02:29] VITALS: RESP 16
[2024-06-15] MEDS: fentaNYL citrate PF 100 MCG/2 ML VIAL ONE (04:06)
[2024-06-15] MEDS: LIDOCAINE 2%/EPINEPHRINE 1:200,000 20 ML PF ONE (04:07)
[2024-06-15] MEDS: BUPIVACAINE 0.25% PF 30 ML VIAL ONE (04:07)
[2024-06-15] MEDS: SODIUM CHLORIDE 0.9% PF INJ 10 ML VIAL ONE (04:07)
[2024-06-15] MEDS: fentANYL 2 MCG/ML BUPIVacaine 0.125%-NSS 100ML BAG ONE (04:07)
[2024-06-15] MEDS: ePHEDrine sulfate 50 MG/ML AMP ONE (04:07)
[2024-06-15] MEDS: MoRPHine SULFATE PF 1 MG/ML 10 ML AMP/VIAL EPI ONE (04:08)
[2024-06-15] MEDS: SODIUM CHLORIDE 0.9% 1,000 ML IV SCH (04:08)
[2024-06-15] MEDS: DIPHTHER/TETAN/PERTUS Vaccine (Tdap, Adol/Adult) 0.5mL IM ONE (04:09)
--- NOTE | 2024-06-15 06:23 | Obstetrical Progress Note ---
Date of Service June 15, 2024 Assessment & Plan (1) Encounter for assessment: Plan: Patient is PPD 1 s/p and doing well - Eating well, voiding well, ambulating well - vitals reviewed and within normal limits - pain well controlled with analgesics - OOB, ambulation, diet progression as tolerated - Blood type: O+, GBS neg, rubella immune - Plan to discharge tomorrow - After discharge, 6 week follow up with OB Admission and Anticipated Discharge Date Admission Date: June 14, 2024 Supervising Physician Co-Signing Physician Notes Resident Physician Supervision Note: I interviewed and examined the patient. Discussed with Dr. Mac and agree with findings and plan as documented in the note. Any exceptions or clarifications are listed here: PP1 s/p . Has some numbness of right thigh still from epidural she thinks as it was more numb than left while epidural was in. Had a little difficulty with full strength due to lack of sensation last night but seems to be improving and moving ok in bed. VSS, exam benign and wnl. Suspect delayed resumption of sensation from epidural as it continues to improve, had very short second stage and doesn't seem like nerve impingement. Will continue to monitor, aware to let us know if worsens. Documented By: Anna Park MD Subjective 33 yo post- day 1 s/p Ambulation: ambulating normally Voiding: no voiding problems Passing Gas:: Yes Diet Tolerance:: regular diet Lochia:: Small Feeding Type:: bottle feeding Current Pain Level:0/10 Resting comfortably this AM in NAD. Denies GALINDO, CP, SOB, N/V/D, LE pain/swelling. Physical Exam Physical Exam: General: patient resting comfortably, NAD, non-toxic in appearance, answers questions appropriately. Skin: warm, dry, intact HEENT: NC/AT, anicteric sclera, conjunctiva without injection, moist mucus membranes. Heart: +S1/S2, regular, no m/r/g Lungs: equal air entry bilaterally, no rales/rhonchi/wheezes Abd: +BS, soft, NT/ND, uterine fundus firm at umbilicus Ext: warm, no clubbing/cyanosis or edema, Vic's neg. Neuro: nonfocal, speech intact, no facial droop, moving all extremities. Results & Data Vital Signs (Past 12 Hours) Vital Signs Temp Pulse Pulse Resp BP BP Pulse Ox 06/15/24 03:45 36.7 C 61 16 109/67 97 06/14/24 23:50 36.6 C 61 16 104/63 97 06/14/24 19:50 36.6 C 67 18 104/67 98 06/14/24 19:00 71 06/14/24 19:00 113/66 06/14/24 18:55 78 114/70 06/14/24 18:50 69 109/67 06/14/24 18:45 76 111/69 06/14/24 18:40 75 116/66 06/14/24 18:35 71 117/58 L O2 Del Method 06/15/24 03:45 Room Air 06/14/24 23:50 Room Air 06/14/24 19:50 Room Air 06/14/24 19:00 06/14/24 19:00 06/14/24 18:55 06/14/24 18:50 06/14/24 18:45 06/14/24 18:40 06/14/24 18:35 (1) Encounter for assessment visit type: exam and care immediately after delivery Qualified Code(s): Z39.0 - Encounter for care and examination of mother immediately after delivery
[2024-06-15] MEDS: BENZOCAINE 20% SPRY 85 APPLN/85 GM CAN EXT PRN (07:30)
[2024-06-15] MEDS: PRENATAL VITAMIN 1 TAB PO SCH (09:05)
[2024-06-15] MEDS: FERROUS SULFATE 325 MG TAB PO SCH (09:05)
[2024-06-15] MEDS: IBUPROFEN 600 MG TAB PO PRN (12:59)
[2024-06-15] MEDS: SERTRALINE HCL 50 MG TABLET PO SCH (20:00)
[2024-06-15] MEDS ORDERED: bisacodyL 5 MG TABEC PO SCH (20:00)
--- NOTE | 2024-06-16 06:40 | Obstetrical Progress Note ---
Date of Service June 16, 2024 Assessment & Plan (1) Encounter for assessment: Plan: Patient is PPD 2 s/p and doing well - Eating well, voiding well, ambulating well - vitals reviewed and within normal limits - pain well controlled with analgesics - OOB, ambulation, diet progression as tolerated - Blood type: O+, GBS neg, rubella immune - Plan to discharge today - After discharge, 6 week follow up with OB Admission and Anticipated Discharge Date Admission Date: June 14, 2024 Supervising Physician Co-Signing Physician Notes Resident Physician Supervision Note: I interviewed and examined the patient. Discussed with Dr. Mac and agree with findings and plan as documented in the note. Any exceptions or clarifications are listed here: LE numbness resolved, OK for DC home. Documented By: Yumiko Brice MD, FACOG Subjective 33 yo post- day 2 s/p Ambulation: ambulating normally Voiding: no voiding problems Passing Gas:: Yes Diet Tolerance:: regular diet Lochia:: Small Feeding Type:: bottle feeding Current Pain Level:0/10 Resting comfortably this AM in NAD. Denies GALINDO, CP, SOB, N/V/D, LE pain/swelling. Physical Exam Physical Exam: General: patient resting comfortably, NAD, non-toxic in appearance, answers questions appropriately. Skin: warm, dry, intact HEENT: NC/AT, anicteric sclera, conjunctiva without injection, moist mucus membranes. Heart: +S1/S2, regular, no m/r/g Lungs: equal air entry bilaterally, no rales/rhonchi/wheezes Abd: +BS, soft, NT/ND, uterine fundus firm at umbilicus Ext: warm, no clubbing/cyanosis or edema, Vic's neg. Neuro: nonfocal, speech intact, no facial droop, moving all extremities. Results & Data Vital Signs (Past 12 Hours) Vital Signs Temp Pulse Resp BP Pulse Ox O2 Del Method 06/15/24 23:30 36.9 C 85 16 95/60 L 98 Room Air 06/15/24 20:00 36.9 C 76 16 101/69 98 Room Air Resident Activity Tracking Resident Involvement: Resident Care Provided Care Provided: OB Delivery (1) Encounter for assessment visit type: exam and care immediately after delivery Qualified Code(s): Z39.0 - Encounter for care and examination of mother immediately after delivery
[2024-06-16 09:54] VITALS: BP 120/76; PULSE 90; TEMP 98.8; O2SAT 99
== END 2024-06-16 13:00 | disposition home or self-care (01) | DRG 807 ==
LOC: 4S1 09:06 → 4E2 19:07